=== PATIENT | male | born 1965 | race Caucasian/White ===

== ENCOUNTER 2016-09-01 05:58 | Emergency (ER) | payer OTHER ==
[~2016-09-01] VITALS: Ht 188 cm; Wt 181.8 kg
[2016-09-01 06:01] VITALS: PULSE 181; RESP 20; O2SAT 95
[2016-09-01 06:05] VITALS: BP 100/81; PULSE 180
--- NOTE | 2016-09-01 06:07 | ED.REPORT ---
HPI-General Illness Date of Service Sep 01, 2016 ED Provider: Dr. Arizmendi A 50 year old male presents to the ED complaining of elevated heart rate onset 0520 today which woke him up from sleep. He has never experienced symptoms with this extended of a duration but does have brief episodes of elevated heart rate about once a month which are resolved by holding his breath. He has not seen a doctor for these baseline symptoms. He denies chest pain or SOB. He reports taking no medication and having no allergies. He drinks alcohol once a week on Saturday nights but does not use tobacco products. Nursing Notes Stated Complaint: HEART RACING Chief Complaint: Chest Pain Nursing Notes Reviewed: Yes Allergies: Coded Allergies: No Known Allergies (Unverified , 09/01/16) General Time Seen by MD: 06:07 Chief Complaint Other (Elevated heart rate) Hx Obtained From: Patient Arrived By: Walk-in Sudden in Onset?: Yes Onset Occurred: 1 - 4 hours ago Symptom Duration: Since onset Recent Healthcare: No recent doctor visit Similar Sx Previous: No Past Medical History Past Medical History Notes: PCP: Dr. Pettit in [place] Past Medical History brief episodes of elevated heart rate Past Surgical History none reported Smoking History Unknown if Ever Smoker (Does not currently smoke.) Social History Drinks alcohol once per week on Saturday nights. Alcohol Use: 1-3 per week Drug Use: Denies drug use Other Social History: Good social support Ambulatory Status Independent Review of Systems elevated heart rate Full Review of Systems Respiratory: Denies: Non-productive cough, Shortness of breath Cardiovascular: Denies: Chest pain GI: Denies: Abdominal pain Musculoskeletal: Denies: Back pain Skin: Denies Rash Complete sys rev & neg: except as marked. Physical Exam Vital Signs Vital Signs Date Time Temp Pulse Resp B/P Pulse Ox O2 Delivery O2 Flow Rate FiO2 09/01/16 08:33 85 110/71 09/01/16 06:05 180 100/81 09/01/16 06:01 36.2 181 20 95 Room Air Initial VS: Reviewed General/Constitutional: Awake, Alert, Well developed Head / Eyes: Atraumatic, Normocephalic, PERRL, EOMI ENT: Atraumatic, Airway patent, Mucous membranes moist Neck: Atraumatic, Full range of motion Respiratory / Chest: Atraumatic, Breath sounds NL, Breath sounds = bilat, No respiratory distress, No rales, No rhonchi, No wheezing Cardiovascular: Regular rhythm, Heart sounds NL, No gallop, No murmurs, No rubs Heart Rate / Rhythm: Positive: Tachycardia no response to Valsalva maneuver. Abdomen: Atraumatic, No guarding, No rebound Back: Atraumatic, Full range of motion Upper Extremities Upper Extremity / MS: Atraumatic, Full range of motion Lower Extremity / Pelvis / MS: Atraumatic, Full range of motion Skin: Atraumatic, Color NL, No rash, Warm, Dry Neurologic: Oriented X3, Speech NL, No motor deficits, No sensory deficits Psychiatric: Affect NL, Mood NL Interpretation & Diagnostics Lab Results Interpretation Result Diagram: 09/01/16 0610 09/01/16 0610 Test 09/01/16 06:10 09/01/16 06:25 White Blood Count 10.1th/mm3 (3.8-10.1) Red Blood Count 5.05mil/mm3 (4.40-5.80) Hemoglobin 15.6g/dL (13.8-17.2) Hematocrit 44.3% (41.0-50.0) Mean Corpuscular Volume 87.7fL (81-100) Mean Corpuscular Hemoglobin 30.9pg (27.0-35.0) Mean Corpuscular Hemoglobin Concent 35.2% (32.0-37.0) Red Cell Distribution Width 13.6% (12.3-15.4) Platelet Count 273bil/L (150-400) Neutrophils (%) (Auto) 56.1% (40-74) Lymphocytes (%) (Auto) 31.6% (14-46) Monocytes (%) (Auto) 10.1% (4-12) Eosinophils (%) (Auto) 1.9% (0-5) Basophils (%) (Auto) 0.2% (0-3) Sodium Level 139mEq/L (134-144) Potassium Level 4.2mEq/L (3.5-5.2) Chloride Level 100mEq/L (97-108) Carbon Dioxide Level 25mmol/L (18-29) Blood Urea Nitrogen 16mg/dL (6-24) Creatinine 1.15mg/dL (0.76-1.27) Estimat Glomerular Filtration Rate 72mL/min (>59) Glucose Level 108mg/dL (60-99) Calcium Level 9.0mg/dL (8.5-10.1) Magnesium Level 2.3mg/dL (1.6-2.6) Total Bilirubin 0.2mg/dL (0.0-1.2) Aspartate Amino Transf (AST/SGOT) 34U/L (0-50) Alanine Aminotransferase (ALT/SGPT) 39U/L (0-44) Alkaline Phosphatase 91U/L (25-150) Troponin T 0.010ug/L (0.0-0.011) Total Protein 8.1g/dL (6.4-8.4) Albumin 4.3g/dL (3.4-5.0) Thyroid Stimulating Hormone (TSH) 6.990uIU/mL (0.450-4.500) D-Dimer 0.5mg/L (<0.50) ECG Interpretation ECG Interpretation: SVT. Rate is 170. Time: 06:10 Interpreted by: ED physician ECG Interpretation: SR at 85. OH normal. No delta wave, otherwise normal. Time: 06:20 Interpreted by: ED physician X-Ray Chest Interpretation Chest Xray Interpretation: IMPRESSION: No acute disease. Note: These findings are concordant with the preliminary interpretation. Dictated by: Josef Sharma M.D. on 09/01/2016 at 8:38 Approved by: Josef Sharma M.D. on 09/01/2016 at 8:38 View: Portable, 1 view Interpretation / Wet Read by: Interpret - Radiologist Re-Eval/Medical Decision Source of Hx: Old records Time of Eval: 06:16 Patient Status: Condition unchanged Re-Evaluation/Progress Note: First attempt at chemical cardioversion with 6mg of adenosine. Unsuccessful. Time of Eval: 06:19 Patient Status: Condition improved Re-Evaluation/Progress Note: Second attempt at chemical cardioversion with 12 mg of adenosine. Successful. Patient is back in sinus rhythm. Time of Eval: 07:27 Re-Evaluation/Progress Note: Rechecked patient and explained the need for a D-Dimer test to rule out blood clotting in the chest. BP is borderline and there is no reson to think that there are any other pertinent symptoms. Time of Eval: 09:00 Re-Evaluation/Progress Note: Explained plan to discharge and refer patient to cardiology ELIZABETH. Explained that the patient can hold breath and push chest muscles, and apply ice water to face if symptoms return. Return to ED warnings given for no relief with mentioned exercises. exercise or feelings of faintness. apply ice water to face. Counseled Regarding: Diagnosis, Lab results, Need for follow-up, When/why to return to ED Discharge & Departure Primary Impression: Paroxysmal supraventricular tachycardia Disposition: Home Discharge Condition All VS Reviewed: Yes Condition: Stable Patient Instructions: Supraventricular Tachycardia (ED) Additional Instructions: Emergency Department evaluation included an view, examination, ECG and labs. Initial ECG demonstrated supraventricular tachycardia which was treated with an injection of adenosine. We recommend that you follow-up with cardiology as soon as possible for further evaluation of this. If you experience recurrent symptoms, attempted to hold her breath and pushed with her abdominal muscles and /or apply ice water to your face. If this is unsuccessful in breaking the SVT, return to emergency department. Return immediately if feeling faint with symptoms. Call the cardiology office for an appointment soon. Referrals: Marcello Hughes MD Attestation Portions of this note were transcribed by Wander Bonner. I, Dr. Arizmendi personally performed the history, physical exam and medical decision- making; I reviewed and confirmed the accuracy of the information in the transcribed note. Signed by: Og Lund, 2016 and 0921. copies to: Mason Pettit MD; Marcello Hughes MD, Donald L MD Sep 01, 2016 06:07 Wander Lockwood Sep 01, 2016 06:16 FELISA BONNER Sep 01, 2016 06:56 Wander Lockwood Sep 01, 2016 06:16 FELISA BONNER Sep 01, 2016 06:56
[2016-09-01] MEDS ORDERED: Adenosine 3 mg/mL 2 mL Inj ONE ×2 (06:10→06:11)
[2016-09-01 06:25] LABS: BASOPHILS % (AUTO) 0.2 % (0-3); EOSINOPHILS % (AUTO) 1.9 % (0-5); MONOCYTES % (AUTO) 10.1 % (4-12); Mean Corpuscular Hemoglobin 30.9 pg (27.0-35.0); Mean Corpuscular Volume 87.7 fL (81-100); NEUTROPHILS % (AUTO) 56.1 % (40-74); Platelet Count 273 bil/L (150-400)
[2016-09-01 06:44] LABS: TROPONIN T 0.01 ug/L (0.0-0.011)
[2016-09-01 06:56] LABS: Magnesium 2.3 mg/dL (1.6-2.6)
[2016-09-01 08:33] VITALS: BP 110/71; PULSE 85
--- NOTE | 2016-09-01 08:39 | DRSVH ---
PROCEDURE: X-RAY CHEST ONE VIEW, PORTABLE ([id number]) INDICATIONS: palpitations TECHNIQUE: One view of the chest was acquired. COMPARISON: None. FINDINGS: Surgical changes and devices: None. Lungs and pleura: No pleural effusions or pneumothorax. Lungs are clear. Mediastinum: Mediastinal contours appear normal. Heart size is normal. Bones and chest wall: No suspicious bony lesions. Overlying soft tissues appear unremarkable. IMPRESSION: No acute disease. Note: These findings are concordant with the preliminary interpretation. Dictated by: Josef Sharma M.D. on 09/01/2016 at 8:38 Approved by: Josef Sharma M.D. on 09/01/2016 at 8:38
== END 2016-09-01 09:15 | disposition home or self-care (01) ==
LOC: SED 05:58
DX: I47.1 Supraventricular tachycardia (principal)
CPT/HCPCS: 36415; 71010; 80053; 83735; 84443; 84484; 85025; 85379; 93005; 99285; J0153